=== PATIENT | female | born 1945 | race Caucasian/White ===

== ENCOUNTER 2025-05-11 13:23 | Outpatient (CLI) | payer MEDICARE ==
--- NOTE | 2025-05-11 16:00 | RADIOLOGY REPORT ---
EXAM: MR MRI LUMBAR SPINE CLINICAL HISTORY: LOW BACK PAIN COMPARISON: None Technique: MRI of the lumbar spine was performed without contrast. Findings: Vertebral body height is maintained. Vertebral alignment is anatomic. Vertebral marrow signal intensity is unremarkable. The conus medullaris is normal in position and signal intensity. L1-L2: No significant spinal canal or foraminal stenosis. L2-L3: Disc bulge with facet arthropathy. No significant spinal canal or foraminal stenosis. L3-L4: Disc bulge with facet arthropathy. No significant spinal canal or foraminal stenosis. L4-L5: Disc bulge with facet arthropathy. No significant spinal canal or foraminal stenosis. L5-S1: Disc bulge with facet arthropathy. Mild bilateral foraminal stenosis. No significant spinal canal narrowing. No mass is identified within the lumbar spinal canal or paravertebral soft tissues. IMPRESSION: Mild degenerative changes of the lumbar spine as described above.
== END 2025-05-11 23:59 | disposition home or self-care (01) ==
LOC: MRI02 13:23
PROVIDERS: ATTEND Student in an Organized Health Care Education/Training Program
DX: M51.17 Intervertebral disc disorders with radiculopathy, lumbosacral region (principal); M54.50 Low back pain, unspecified; M47.27 Other spondylosis with radiculopathy, lumbosacral region; M48.07 Spinal stenosis, lumbosacral region
CPT/HCPCS: 72148